=== PATIENT | male | born 1990 | race African-American/Black ===

== ENCOUNTER 2016-05-16 18:59 | Emergency (ER) ==
[2016-05-16] MEDS ORDERED: NAPROSYN PO ONE (20:39)
[2016-05-16] MEDS ORDERED: TYLENOL WITH CODEINE #3 PO ONE (20:39)
[2016-05-16] MEDS ORDERED: ROBITUSSIN-DM PO ONE (20:40)
--- NOTE | 2016-05-16 20:41 | PROVIDER DOCUMENTATION ---
HPI-General Adult - General Chief Complaint: Flu Symptoms Stated Complaint: FLU SX Time Seen by Provider: 05/16/16 19:09 Source: patient Allergies/Adverse Reactions: Patient Allergies Allergy/AdvReac Type Severity Reaction Status Date / Time No Known Allergies Allergy Verified 06/27/15 12:15 - History of Present Illness -Gen Adult Nature of Presenting Problems: 26 y/o AAM present to the ED with a fever, cough, chest pain, congestion in head and chest for 3 days. Location of Pain/Injury: reports: head, chest Pain Radiation: reports: no radiation Quality of Pain: reports: none Severity: reports: moderate, severe Onset/Duration: reports: 3 days ago Timing: reports: still present Associated Symptoms: reports: chest pain, cough, EENT symptoms, fever/chills, headaches, sinus congestion/drainage. denies: nausea, shortness of breath, vomiting, weakness Similar Symptoms Previously?: No Recently seen or treated by another doctor?: No Review of Systems - Adult - REVIEW OF SYSTEMS - ADULT Constitutional: reports: chills, fever Eyes: reports: no symptoms reported Ears, Nose, Mouth & Throat: reports: sinus problem, throat pain Cardiovascular: reports: chest pain. denies: edema Respiratory: reports: cough. denies: shortness of breath, wheezing Gastrointestinal: denies: abdominal pain, nausea, vomiting Genitourinary: reports: no symptoms reported Musculoskeletal: reports: no symptoms reported Integumentary: reports: no symptoms reported Neurological: reports: no symptoms reported Psychiatric: reports: no symptoms reported Endocrine: reports: no symptoms reported Hematologic/Lymphatic: reports: no symptoms reported Allergic/Immunologic: reports: no symptoms reported All Other Systems: Reviewed and Negative Past History - Adult - PAST MEDICAL HISTORY-ADULT Review of Records: reports: Old Records Reviewed, Nursing Assessment Review, Medications Reviewed Major Childhood Illnesses: reports: denies history Cardiovascular: reports: denies history Respiratory: reports: denies history Gastrointestinal: reports: denies history Obstetrical/Gynecological: reports: denies history Genitourinary: reports: denies history Musculoskeletal: reports: denies history Neurological: reports: denies history Endocrine/Immune: reports: denies history Other Conditions: reports: denies history - PRIOR SURGERIES/PROCEDURES Surgical/Procedure History: reports: none - PRIOR HOSPITALIZATIONS Prior Hospitalizations: reports: none - IMMUNIZATION STATUS Childhood Immunizations: See Nurse Assessment Flu Vaccine: See Nurse Assessment - FAMILY HISTORY Family History: reviewed, not pertinent Physical Exam-General - PHYSICAL EXAM-ADULT Initial Vital Signs Reviewed: Yes - CONSTITUTIONAL General Appearance: appears well, alert, no apparent distress - EYES Eyes: PERRL/EOMI, pink conjunctivae - HEAD, EARS, NOSE, MOUTH & THROAT HENMT: moist mucous membranes, normal ENT inspection, TMs normal, pharynx normal - NECK Neck: non-tender, full range of motion, supple, normal inspection - RESPIRATORY Respiratory: lungs clear, normal breath sounds. negative: rales, rhonchi, stridor, wheezing - CARDIOVASCULAR Cardiovascular: normal peripheral pulses, regular rate, rhythm - GASTROINTESTINAL (ABDOMEN) Abdominal Exam: normal bowel sounds, non tender, soft - MUSCULOSKELETAL Back Exam: normal inspection, no CVA tenderness, no vertebral tenderness Extremity: normal range of motion, non-tender, normal gait, normal inspection - SKIN Integumentary: normal color, normal turgor, warm/dry - NEUROLOGIC Neurologic: grossly normal, no motor/sensory deficits - PSYCHIATRIC Psych/Mental Status: normal mood/affect, normal thought content, normal thought process, oriented x 3 Progress - PLAN OF CARE/RESULTS Progress/Plan/Lab Results: Orders Category Date Time Status CHEST-2 VIEWS [RAD] Stat Exams 05/16/16 20:39 Taken CBC WITH DIFF [HEME] Stat Lab 05/16/16 20:55 Results Flu [INFLUENZA SCREEN PL] Stat Lab 05/16/16 19:05 Completed Acetaminophen with Codeine [Tylenol with Codeine #3] Med 05/16/16 20:39 Discontinued 1 each PO NOW ONE Guaifenesin/Dm [Robitussin-Dm] Med 05/16/16 20:49 Discontinued 10 ml .ROUTE .STK-MED ONE Guaifenesin/Dm [Robitussin-Dm] Med 05/16/16 20:40 Discontinued 10 ml PO NOW ONE Naproxen [Naprosyn] Med 05/16/16 20:50 Discontinued 500 mg .ROUTE .STK-MED ONE Naproxen [Naprosyn] Med 05/16/16 20:39 Discontinued 500 mg PO NOW ONE Vital Signs Temp Pulse Resp BP Pulse Ox 05/16/16 22:28 98.1 F 72 18 122/61 99 05/16/16 19:09 99.6 F 89 18 124/67 99 No Known Allergies Allergy (Verified 06/27/15 12:15) Guaifenesin/Codeine [Robitussin-AC] 1 - 2 tsp PO Q4H PRN PRN #6 oz 05/16/16 Naproxen Sodium [Naprelan] 500 mg PO BID PC #60 mg 05/16/16 Laboratory 05/16/16 05/16/16 20:55 19:05 WBC 4.76 L RBC 5.46 Hgb 16.3 Hct 49.2 MCV 90.1 MCH 30.6 MCHC 33.9 RDW Std Deviation 13.3 Plt Count 219 MPV 10.7 H Immature Gran % (Auto) 0.2 Neut % (Auto) 34.1 L Lymph % (Auto) 40.3 O'Brien % (Auto) 23.1 H Eos % (Auto) 1.7 Baso % (Auto) 0.6 Immature Gran # (Auto) 0.01 Neut # (Auto) 1.62 Lymph # (Auto) 1.85 O'Brien # (Auto) 1.10 H Eos # (Auto) 0.08 Baso # (Auto) 0.03 Influenza A (Rapid) NEGATIVE Influenza B (Rapid) NEGATIVE Departure - Departure Time of Disposition Order: 22:46 DIAGNOSIS: Viral syndrome Disposition: HOME 01 Certified Medical Emergency: Emergent Condition: Fair Additional Instructions: DELSYM for cough SUDAFED 12 HOUR for nasal congestion Prescriptions: Naproxen Sodium [Naprelan] 500 mg PO BID PC #60 mg Guaifenesin/Codeine [Robitussin-AC] 1 - 2 tsp PO Q4H PRN PRN #6 oz PRN Reason: Cough Referrals: Aditya Roman MD [Primary Care Provider] - Forms: Return to School/Parent Work Instructions: Cough, Adult, [id number], Naproxen Sodium oral tablet, extended -release, Codeine; Guaifenesin oral solution or syrup Attestation - Scribe Verification/Attestation Scribe:: Suraj Asif Acting as Scribe for:: Randall Reynoso Scribe documention review:: This chart was documented by a scribe and accurately reflects the service the provider performed and the decisions made by the provider.
[2016-05-16] MEDS ORDERED: ROBITUSSIN-DM ONE (20:49)
[2016-05-16] MEDS ORDERED: NAPROSYN ONE (20:50)
[2016-05-16 22:29] VITALS: BP 122/61
[2016-05-16 22:41] LABS: BASO% 0.6 % (0.0-0.8); EOS# 0.08 X1000 (0.0-0.7); EOS% 1.7 % (0.0-10.0); HEMATOCRIT 49.2 % (42.0-52.0); HEMOGLOBIN 16.3 g/dL (14.0-18.0); IMM GRAN# 0.01 X1000 (0.0-0.04); IMM GRAN% 0.2 % (0.0-0.5); LYMPH# 1.85 X1000 (1.2-3.4); LYMPH% 40.3 % (20.5-51.1); MANUAL DIFF NEEDED? YES; MCH 30.6 PG (27-31); MCHC 33.9 g/dL (33-37); MCV 90.1 FL (81-99); MONO% 23.1 % (1.7-9.3); MPV 10.7 FL (7.4-10.4); NEUT% 34.1 % (42.2-75.2); PLT 219 X1000 (130-400); RBC 5.46 XMIL (4.7-6.1)
[2016-05-16 22:51] LABS: BANDS 2 % (0-1); EOS 2 % (1-10); LYMPHS 37 % (21-51); MONO 20 % (1-9)
--- NOTE | 2016-05-17 11:19 | Diag Imaging Result Document ---
PROCEDURE NAME: CHEST-2 VIEWS - 05/16/2016 CHEST, TWO VIEWS: COMPARISON: 06/29/2015. INDICATION: Cough. FINDINGS: The cardiomediastinal silhouette is within normal limits. The pulmonary vasculature is not congested. No infiltrates or effusions are identified. IMPRESSION: No acute cardiopulmonary abnormality is appreciated.
== END 2016-05-16 23:01 | disposition home or self-care (01) ==
LOC: P.ED 18:59
DX: B34.9 Viral infection, unspecified (principal); R50.9 Fever, unspecified; R05 Cough; R07.9 Chest pain, unspecified; R09.81 Nasal congestion; R51 Headache; J02.9 Acute pharyngitis, unspecified
CPT/HCPCS: 71020; 85025; 87804; 99284